=== PATIENT | female | born 1945 | race Caucasian/White ===

== ENCOUNTER 2020-12-02 23:59 | Emergency (ER) | payer MEDICARE, SELFPAY ==
[~2020-12-02] VITALS: Ht 157.5 cm; Wt 67.3 kg
[~2020-12-02 23:59] MED LIST: ATEN100T PO; CALC0.5C2 PO; LEVO100T PO; METF-436 PO; PRAV80TA3 PO
[2020-12-03 04:20] VITALS: BP 120/67
== END 2020-12-03 04:23 | disposition home or self-care (01) ==
LOC: ER 23:59
DX: G62.9 Polyneuropathy, unspecified (principal); E78.00 Pure hypercholesterolemia, unspecified; I10 Essential (primary) hypertension; E11.9 Type 2 diabetes mellitus without complications; E07.9 Disorder of thyroid, unspecified; Z79.899 Other long term (current) drug therapy
CPT/HCPCS: 73630; 93971; 99284

== ENCOUNTER 2022-02-19 11:30 | Emergency (ER) | payer MEDICARE ==
[~2022-02-19] VITALS: Ht 157.5 cm; Wt 65.9 kg
[2022-02-19 12:02] VITALS: BP 196/81
[2022-02-19] MEDS ORDERED: CefTRIAXone 1000mg IM Kit (w/lidocaine diluent) IM ONE (13:30)
[2022-02-19] MEDS ORDERED: CEPH-585 PO (13:31)
[2022-02-19] MEDS ORDERED: SULF1TAB49 PO (13:31)
== END 2022-02-19 13:53 | disposition home or self-care (01) ==
LOC: ER 11:30
DX: L03.031 Cellulitis of right toe (principal); E11.9 Type 2 diabetes mellitus without complications; E78.00 Pure hypercholesterolemia, unspecified; I10 Essential (primary) hypertension; E03.9 Hypothyroidism, unspecified; Z79.899 Other long term (current) drug therapy
CPT/HCPCS: 36415; 84550; 96372; 99283; J0696

== ENCOUNTER 2022-03-08 10:00 | Emergency (ER) | payer MEDICARE ==
[~2022-03-08] VITALS: Ht 157.5 cm; Wt 72.0 kg
[~2022-03-08 10:00] MED LIST changes: +CEPH-585 PO
[2022-03-08 10:03] VITALS: BP 212/81
[2022-03-08] MEDS ORDERED: CEPH250T PO (10:43)
[2022-03-08] MEDS ORDERED: PRED20TA PO (10:43)
== END 2022-03-08 10:48 | disposition home or self-care (01) ==
LOC: ER 10:00
DX: M10.9 Gout, unspecified (principal); I10 Essential (primary) hypertension; E78.00 Pure hypercholesterolemia, unspecified; E11.9 Type 2 diabetes mellitus without complications; Z79.899 Other long term (current) drug therapy
CPT/HCPCS: 99283